=== PATIENT | male | born 1975 | race African-American/Black ===

== ENCOUNTER → 2018-06-06 | Outpatient (CLI) | payer OTHER ==
--- NOTE | 2018-06-06 16:52 | RAD ---
Left foot radiograph 06/06/2018 4:30 PM INDICATION: Injured one month ago to distal portion of the foot COMPARISON: None available. TECHNIQUE: 3 views the left foot are provided. FINDINGS: There is no acute fracture or dislocation. Bone mineralization is within normal limits. Joint spaces are maintained. Regional soft tissues are within normal limits. There is no soft tissue gas or osseous erosion. Posterior calcaneal enthesophyte is noted. IMPRESSION: No acute fracture or dislocation. Electronically signed by: Giselle Ochoa MD (06/06/2018 4:49 PM) [id number]
== END | disposition home or self-care (01) ==
LOC: PMG 16:20
PROVIDERS: ATTEND Registered Nurse
DX: S99.922A Unspecified injury of left foot, initial encounter (principal); X58.XXXA Exposure to other specified factors, initial encounter; Y93.89 Activity, other specified; Y92.89 Other specified places as the place of occurrence of the external cause; Y99.8 Other external cause status
CPT/HCPCS: 73630